=== PATIENT | female | born 1965 | race Asian ===

== ENCOUNTER 2017-05-28 05:35 | Emergency (ER) | payer OTHER ==
[~2017-05-28] VITALS: Ht 175.3 cm; Wt 108.0 kg
[2017-05-28 06:57] VITALS: BP 145/92; TEMP 98.9
== END 2017-05-28 06:59 | disposition home or self-care (01) ==
LOC: ED 05:35
DX: K04.7 Periapical abscess without sinus (principal); R68.84 Jaw pain; K02.9 Dental caries, unspecified
CPT/HCPCS: 99282

== ENCOUNTER 2019-08-19 11:13 | Outpatient (CLI) | payer OTHER | END 2019-08-19 20:52 | disposition home or self-care (01) | LOC: RAD 11:13 | DX: M54.17 Radiculopathy, lumbosacral region (principal) ==

== ENCOUNTER 2019-12-12 21:52 | Emergency (ER) | payer OTHER ==
[~2019-12-12] VITALS: Ht 180.3 cm; Wt 98.0 kg
[2019-12-12 22:45] VITALS: BP 167/95; TEMP 97.7
== END 2019-12-12 22:45 | disposition home or self-care (01) ==
LOC: ED 21:52
DX: M79.605 Pain in left leg (principal); G89.29 Other chronic pain; Z76.0 Encounter for issue of repeat prescription
CPT/HCPCS: 99282

== ENCOUNTER 2021-09-01 08:52 | Outpatient (CLI) | payer OTHER | END 2021-09-01 19:41 | disposition home or self-care (01) | LOC: MAMMO 08:52 | PROVIDERS: ATTEND Nurse Practitioner Primary Care | DX: Z12.31 Encounter for screening mammogram for malignant neoplasm of breast (principal) ==

== ENCOUNTER 2022-09-20 08:42 | Outpatient (CLI) | payer OTHER | END 2022-09-20 18:57 | disposition home or self-care (01) | LOC: MAMMO 08:42 | PROVIDERS: ATTEND Nurse Practitioner Family | DX: Z00.00 Encounter for general adult medical examination without abnormal findings (principal); Z12.31 Encounter for screening mammogram for malignant neoplasm of breast ==

== ENCOUNTER 2023-04-05 10:04 | Outpatient (CLI) | payer OTHER | END 2023-04-05 19:57 | disposition home or self-care (01) | LOC: RAD 10:04 | PROVIDERS: ATTEND Nurse Practitioner Family | DX: M54.17 Radiculopathy, lumbosacral region (principal) ==